=== PATIENT | female | born 1995 | race Caucasian/White ===

== ENCOUNTER 2023-05-18 18:57 | Emergency (ER) | payer OTHER ==
[~2023-05-18] VITALS: Ht 165.1 cm; Wt 68.0 kg
[2023-05-18 19:07] VITALS: O2SAT 98
[2023-05-18] MEDS ORDERED: CEFTRIAXONE SODIUM 1 G/VIAL IM NR (21:30)
[2023-05-18] MEDS ORDERED: LIDOCAINE HCL 1% 20ML VIAL (Pyxis) INJ INFIL NR (21:30)
[2023-05-18] MEDS ORDERED: NAPR-681 PO (22:20)
[2023-05-18] MEDS ORDERED: SULF1TAB48 MT (22:20)
[2023-05-18] MEDS ORDERED: AMOX1TAB16 MT (22:20)
[2023-05-18 22:31] VITALS: BP 131/68; PULSE 75; RESP 19; TEMP 98.1
== END 2023-05-18 22:39 | disposition home or self-care (01) ==
LOC: ER 18:57
DX: K04.7 Periapical abscess without sinus (principal); L03.211 Cellulitis of face
CPT/HCPCS: 99283; 81025; 96372; J0696; J3490